=== PATIENT | female | born 1995 | race African-American/Black ===

== ENCOUNTER 2017-11-05 09:10 | Emergency (ER) | payer SELFPAY ==
[~2017-11-05] VITALS: Ht 160 cm; Wt 62.6 kg
[2017-11-05 09:14] VITALS: BP 130/81
--- NOTE | 2017-11-05 09:16 | NUR ---
PT AMBULATES TO BED 11
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
[2017-11-05 09:44] VITALS: BP 122/87
--- NOTE | 2017-11-05 09:45 | NUR ---
Patient discharged with v/s stable. Written and verbal after care instructions given and explained. Patient alert, oriented and verbalized understanding of instructions. Ambulatory with steady gait. All questions addressed prior to discharge. ID band removed. Patient advised to follow up with PMD. Rx of DIPHENHYDRAMINE, HYDROCORTISONE CREAM given. Patient educated on indication of medication including possible reaction and side effects. Opportunity to ask questions provided and answered.
== END 2017-11-05 09:45 | disposition home or self-care (01) ==
LOC: MED 09:10
DX: R21 Rash and other nonspecific skin eruption (principal)
CPT/HCPCS: 99282

== ENCOUNTER 2019-07-05 13:49 | Emergency (ER) | payer SELFPAY ==
[~2019-07-05] VITALS: Ht 160 cm; Wt 59.9 kg
[2019-07-05 14:05] VITALS: BP 130/85
--- NOTE | 2019-07-05 14:12 | NUR ---
Triage completed, ambulated out to ER waiting room.
--- NOTE | 2019-07-05 14:39 | NUR ---
Patient ambulated to bed 4. RN evaluating patient at bedside.
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
--- NOTE | 2019-07-05 15:01 | NUR ---
Dr. Melton, accompanied by female biology lecturer, Sintia, is evaluating the patient at bedside.
--- NOTE | 2019-07-05 16:04 | NUR ---
Patient discharged with v/s stable. Written and verbal after care instructions given and explained. Patient alert, oriented and verbalized understanding of instructions. Ambulatory with steady gait. All questions addressed prior to discharge. ID band removed. Patient advised to follow up with PMD. Rx of FLAGYL given. Patient educated on indication of medication including possible reaction and side effects. Opportunity to ask questions provided and answered.
[2019-07-05 16:05] VITALS: BP 128/81
[2019-07-09 06:11] LABS: CHLAMYDIA TRACHOMATIS AMP DNA Negative (Negative)
== END 2019-07-05 16:04 | disposition home or self-care (01) ==
LOC: MED 13:49
DX: N76.0 Acute vaginitis (principal); B96.89 Other specified bacterial agents as the cause of diseases classified elsewhere; Z88.2 Allergy status to sulfonamides
CPT/HCPCS: 36415; 81025; 87070; 87205; 87210; 87491; 99283